=== PATIENT | female | born 1965 | race American Indian/Alaskan Native ===

== ENCOUNTER 2017-06-06 08:56 | Emergency (ER) | payer MEDICAID ==
[2017-06-06 09:00] VITALS: BP 148/81; TEMP 97; O2SAT 100
[2017-06-06 09:01] VITALS: BMI 37.8
--- NOTE | 2017-06-06 10:23 | ED PDOC ---
HPI: General Adult Time Seen by Provider: 06/06/17 09:08 Chief Complaint (Nursing): Flu-like Symptoms Chief Complaint (Provider): Chronic pain and weakness with dizziness History Per: Patient History/Exam Limitations: no limitations Onset/Duration Of Symptoms: Days (chronic, worsening last night) Additional Complaint(s): Dasha Castrejon is a 51 year old female with a past surgical history of a hysterectomy completed 1 year ago, cholecystectomy, and past medical history of hypertension and a past family history of stomach problems presenting to the ED for an evaluation of chronic generalized weakness and pain worsening last night. The patient reports pain to her bilateral lower extremities, bilateral upper extremities, right shoulder, and bilateral ankles associated with dizziness, sweats, and nausea, and epigastric pain. The patient states she also has had chronic hematuria. She has experienced these symptoms upon completing her hysterectomy. She also reports being seen at [facility] for the same symptoms and was prescribed Meclizine. The patient reports drinking cranberry juice and taking Tylenol last night at 3 AM without relief and immediately vomited upon taking the medication. She denies fever. PMD: TBD Past Medical History Reviewed: Historical Data, Nursing Documentation, Vital Signs Vital Signs: Last Vital Signs Temp 97 F L 06/06/17 08:59 Pulse 69 06/06/17 10:32 Resp BP 148/81 06/06/17 08:59 Pulse Ox 100 06/06/17 10:32 - Medical History PMH: Anemia, Gall Bladder Disease (Hx Gallstones), HTN Denies: Anxiety, Depression, HIV, Chronic Kidney Disease - Surgical History Surgical History: Cholecystectomy (1990) - Family History Family History: States: Unknown Family Hx - Social History Current smoker - smoking cessation education provided: No Ex-Smoker (has not smoked in the last 12 months): No Alcohol: None Drugs: Denies - Home Medications Home Medications: Ambulatory Orders Medication Instructions Recorded Ferrous Sulfate 325 mg PO DAILY 07/27/14 Ascorbic Acid 500 mg PO DAILY #30 tab 07/28/14 Bisacodyl [Ducolax] 5 mg PO DAILY #30 ect 07/28/14 Citalopram [celeXA] 10 mg PO DAILY #0 tab 07/28/14 Magnesium Citrate [Magnesia 1.75 gm PO ONCE #1 bot 03/06/15 Citrate] Ondansetron [Zofran] 4 mg PO Q8H PRN #30 tab 03/06/15 Polyethylene Glycol 3350 [Miralax] 17 gm PO DAILY PRN #1 bottle 03/06/15 Meclizine [Meclizine*] 25 mg PO Q6 #30 tab 06/06/17 Naproxen 500 mg PO BID #20 tab 06/06/17 - Allergies Allergies/Adverse Reactions: Allergies Allergy/AdvReac Type Severity Reaction Status Date / Time codeine Allergy RASH Verified 06/06/17 09:10 Penicillins Allergy RASH Verified 06/06/17 09:10 Sulfa (Sulfonamide Allergy ANAPHYLAXIS Verified 06/06/17 09:10 Antibiotics) Review of Systems ROS Statement: Except As Marked, All Systems Reviewed And Found Negative Constitutional: Positive for: Sweats, Weakness (generalized weakness and pain felt to bilateral lower extremities, upper extremities, right shoulder and bilateral ankles). Negative for: Fever Gastrointestinal: Positive for: Nausea, Vomiting, Abdominal Pain (epigastric pain) Genitourinary Female: Positive for: Hematuria (chronic) Neurological: Positive for: Dizziness Physical Exam - Reviewed Nursing Documentation Reviewed: Yes Vital Signs Reviewed: Yes - Physical Exam Appears: Positive for: Non-toxic, No Acute Distress Head Exam: Positive for: ATRAUMATIC, NORMOCEPHALIC Skin: Positive for: Normal Color, Warm, Dry Eye Exam: Positive for: Normal appearance, EOMI, PERRL ENT: Positive for: Normal ENT Inspection Neck: Positive for: Normal, Painless ROM, Supple Cardiovascular/Chest: Positive for: Regular Rate, Rhythm. Negative for: Edema, Murmur Respiratory: Positive for: Normal Breath Sounds. Negative for: Respiratory Distress Gastrointestinal/Abdominal: Positive for: Soft, Tenderness (mild epigastric tenderness) Back: Positive for: Normal Inspection Extremity: Positive for: Normal ROM Neurologic/Psych: Positive for: Alert, Oriented (x3). Negative for: Motor/ Sensory Deficits - Laboratory Results Result Diagrams: 06/06/17 10:24 06/06/17 10:24 - ECG ECG: Positive for: Interpreted By Me, Viewed By Me ECG Rhythm: Positive for: Normal QRS, Sinus Rhythm (normal). Negative for: ST/ T Changes Rate: 69 O2 Sat by Pulse Oximetry: 100 (RA) Pulse Ox Interpretation: Normal Medical Decision Making Medical Decision Making: Time: :08 Impression: Body Aches, Dizziness, Epigastric pain Differential includes but is not limited to Vertigo as per 2nd episode of dizziness experienced and Arthritis or Fibromyalgia as per chronic recurring body aches with other conditions considered. Plan: * ED EKG * BMP * CBC (with differential) * Troponin I * Antivert 25 mg PO * Toradol 30 mg IM * Reevaluation Scribe Attestation: Documented by Soledad Jay, acting as a scribe for Kobi Rajput MD. Provider Scribe Attestation: All medical record entries made by the Scribe were at my direction and personally dictated by me. I have reviewed the chart and agree that the record accurately reflects my personal performance of the history, physical exam, medical decision making, and the department course for this patient. I have also personally directed, reviewed, and agree with the discharge instructions and disposition. Disposition - Clinical Impression Clinical Impression: Arthralgia, Dizziness - Patient ED Disposition Is Patient to be Admitted: No Doctor Will See Patient In The: Office Counseled Patient/Family Regarding: Studies Performed, Diagnosis, Need For Followup - Disposition Referrals: [facility] [Outside] Disposition: Routine/Home Disposition Time: 12:11 Condition: GOOD Additional Instructions: Follow up with your PCP in 2 -3 days. Prescriptions: Meclizine [Meclizine*] 25 mg PO Q6 #30 tab Naproxen 500 mg PO BID #20 tab Instructions: Vertigo (ED), Arthralgia (ED)
[2017-06-06 10:31] VITALS: PULSE 69
[2017-06-06 10:34] LABS: BASO % 0.4 % (0.0-2.0); EOS # 0.1 K/uL (0.0-0.7); HEMATOCRIT 40.1 % (34.0-47.0); LYMPH # 2.2 K/uL (1.0-4.3); LYMPH % 32.6 % (20.0-40.0); MEAN CELL VOLUME 87.6 fl (81.0-99.0); MEAN CORPUSCULAR HEMOGLOBIN 28.4 pg (27.0-31.0); MEAN CORPUSCULAR HGB CONC 32.4 g/dL (33.0-37.0); MEAN PLATELET VOLUME 7.8 fl (7.2-11.7); MONO # 0.3 K/uL (0.0-0.8); MONO % 5.1 % (0.0-10.0); NEUT # 4.1 K/uL (1.8-7.0); NEUT % 60.9 % (50.0-75.0); RED CELL DISTRIBUTION WIDTH 13.2 % (11.5-14.5); WHITE BLOOD COUNT 6.8 K/uL (4.8-10.8)
[2017-06-06 10:42] LABS: BLOOD UREA NITROGEN 15 mg/dl (7-17); CALCIUM 10.1 mg/dL (8.4-10.2); CARBON DIOXIDE 31 mmol/L (22-30); CHLORIDE 102 mmol/L (98-107); GFR AFRICAN-AMERICAN > 60; GLUCOSE,RANDOM 90 mg/dL (65-105); SODIUM 144 mmol/l (132-148)
--- NOTE | 2017-06-07 09:13 | CARD ---
APPROVED REPORT EKG Measurement Heart [id number] <Conclusion> Normal sinus rhythm Normal ECG
== END 2017-06-06 12:31 | disposition home or self-care (01) ==
LOC: H.ER 08:56
DX: R42 Dizziness and giddiness (principal); M25.569 Pain in unspecified knee; I10 Essential (primary) hypertension; Z87.891 Personal history of nicotine dependence; Z88.0 Allergy status to penicillin; Z90.49 Acquired absence of other specified parts of digestive tract
CPT/HCPCS: 80048; 84484; 85025; 93005; 96372; 99282; J1885

== ENCOUNTER 2017-06-09 12:44 | Emergency (ER) | payer MEDICAID ==
[2017-06-09 12:45] VITALS: BMI 33.7
[2017-06-09 12:52] VITALS: BP 136/91; PULSE 78; RESP 18; TEMP 98; O2SAT 98
[2017-06-09] MEDS ORDERED: Sodium Chloride 0.9% 1,000 ML IV STA (13:57)
[2017-06-09 14:13] LABS: BASO % 0.4 % (0.0-2.0); EOS # 0.1 K/uL (0.0-0.7); EOS % 1.2 % (0.0-4.0); HEMATOCRIT 40.2 % (34.0-47.0); LYMPH # 1.5 K/uL (1.0-4.3); LYMPH % 19.5 % (20.0-40.0); MEAN CELL VOLUME 87.1 fl (81.0-99.0); MEAN CORPUSCULAR HEMOGLOBIN 28.6 pg (27.0-31.0); MEAN CORPUSCULAR HGB CONC 32.8 g/dL (33.0-37.0); MEAN PLATELET VOLUME 7.5 fl (7.2-11.7); MONO # 0.3 K/uL (0.0-0.8); MONO % 3.8 % (0.0-10.0); NEUT # 5.9 K/uL (1.8-7.0); NEUT % 75.1 % (50.0-75.0); NRBC % 0.1 % (0.0-0.0); RED CELL DISTRIBUTION WIDTH 13.1 % (11.5-14.5); WHITE BLOOD COUNT 7.9 K/uL (4.8-10.8)
--- NOTE | 2017-06-09 14:18 | ED PDOC ---
HPI: General Adult Time Seen by Provider: 06/09/17 13:05 Chief Complaint (Nursing): Dizziness/Lightheaded History Per: Patient Additional Complaint(s): Pt. states for the past month she's had dizziness described as feeling imbalanced. States she initially developed symptoms over the summer after she had vomiting and diarrhea. She was seen in [facility] ED and given meclizine which initially did provide some relief. States symptoms returned 1 month ago and are now associated with atraumatic non-radiating upper and lower back pain. Also reports that she was seen in ED last week for same complaint and was prescribed Travel Sickness which has not provided any relief. Reports now dizziness is associated with nausea and non-bloody vomiting. Denies head injury, abdominal pain, chest pain, SOB, fever, incontinence, hematuria, dysuria. Past Medical History Reviewed: Historical Data, Nursing Documentation, Vital Signs Vital Signs: Last Vital Signs Temp 98 F 06/09/17 12:50 Pulse 78 06/09/17 12:50 Resp 18 06/09/17 12:50 BP 136/91 H 06/09/17 12:50 Pulse Ox 98 06/09/17 16:28 - Medical History PMH: Gastritis, HTN Denies: Chronic Kidney Disease - Surgical History Surgical History: Cholecystectomy - Family History Family History: States: Unknown Family Hx - Immunization History Hx Tetanus Toxoid Vaccination: Yes Hx Influenza Vaccination: Yes Hx Pneumococcal Vaccination: Yes - Home Medications Home Medications: Ambulatory Orders Medication Instructions Recorded Diltiazem HCl [Diltiazem 24Hr ER] 300 mg PO DAILY 04/30/16 Ciprofloxacin [Cipro] 500 mg PO BID 12/20/16 Ferrous Sulfate 325 mg PO BID 12/20/16 Ondansetron [Zofran Odt] 4 mg PO Q6 PRN 12/20/16 Meclizine [Meclizine*] 25 mg PO Q6 #30 tab 12/21/16 Ondansetron ODT [Zofran ODT] 1 odt PO BID PRN #6 odt 12/21/16 LORazepam [Ativan] 1 mg PO BID PRN #10 tab 06/09/17 Ondansetron ODT [Zofran ODT] 4 mg PO TID #30 odt 06/09/17 - Allergies Allergies/Adverse Reactions: Allergies Allergy/AdvReac Type Severity Reaction Status Date / Time codeine Allergy ITCHING Verified 06/09/17 12:50 Penicillins Allergy ITCHING Verified 06/09/17 12:50 Sulfa (Sulfonamide Allergy ITCHING Verified 06/09/17 12:50 Antibiotics) Review of Systems ROS Statement: Except As Marked, All Systems Reviewed And Found Negative Musculoskeletal: Positive for: Back Pain Neurological: Positive for: Dizziness Physical Exam - Reviewed Nursing Documentation Reviewed: Yes Vital Signs Reviewed: Yes - Physical Exam Appears: Positive for: Well, Non-toxic, No Acute Distress Head Exam: Positive for: ATRAUMATIC, NORMAL INSPECTION, NORMOCEPHALIC Skin: Positive for: Normal Color, Warm. Negative for: Rash Eye Exam: Positive for: Normal appearance, EOMI, PERRL, Nystagmus (horizontal nystagmus) ENT: Positive for: Normal ENT Inspection Neck: Positive for: Normal, Painless ROM Cardiovascular/Chest: Positive for: Regular Rate, Rhythm Respiratory: Positive for: CNT, Normal Breath Sounds Gastrointestinal/Abdominal: Positive for: Normal Exam, Bowel Sounds, Soft. Negative for: Tenderness Back: Positive for: Normal Inspection. Negative for: L CVA Tenderness, R CVA Tenderness, Vertebral Tenderness Extremity: Positive for: Normal ROM Neurologic/Psych: Positive for: Alert, Oriented - Laboratory Results Result Diagrams: 06/09/17 14:09 06/09/17 14:09 - ECG O2 Sat by Pulse Oximetry: 98 - Progress ED Course And Treament: Labs ordered. CT head w/o contrast ordered. Antivert 1mg PO, reglan 10mg IVPB, IV NS bolus x [address] results d/w pt. and instructed to f/u with neuro for further evaluation. Disposition - Clinical Impression Clinical Impression: Vertigo, Back pain - Patient ED Disposition Is Patient to be Admitted: No - Disposition Referrals: Mark Greco MD [Staff Provider] - Leo Delaney MD [Medical Doctor] - Disposition: Routine/Home Disposition Time: 16:25 Condition: STABLE Prescriptions: LORazepam [Ativan] 1 mg PO BID PRN #10 tab PRN Reason: Dizziness Ondansetron ODT [Zofran ODT] 4 mg PO TID #30 odt Instructions: Vertigo (ED), Back Pain (ED) Forms: [employer] (Greenlandic), [facility] ED School/Work Excuse
[2017-06-09 14:23] LABS: ALB/GLOB RATIO 1.1 (1.0-2.1); ALKALINE PHOSPHATASE 108 U/L (38-126); ALT/SGPT 35 U/L (9-52); AST/SGOT 20 U/L (14-36); BILIRUBIN,TOTAL 0.4 mg/dl (0.2-1.3); BLOOD UREA NITROGEN 13 mg/dl (7-17); CALCIUM 9.7 mg/dL (8.4-10.2); CARBON DIOXIDE 27 mmol/L (22-30); CHLORIDE 105 mmol/L (98-107); GFR AFRICAN-AMERICAN > 60; GLUCOSE,RANDOM 122 mg/dL (65-105); POTASSIUM 4.2 MMOL/L (3.6-5.0); SODIUM 141 mmol/l (132-148)
--- NOTE | 2017-06-09 15:05 | RAD ---
PROCEDURE: Radiographs of the Lumbar Spine. HISTORY: pain COMPARISON: No prior. FINDINGS: BONES: Normal alignment. No listhesis. No fracture. DISC SPACES: Multilevel spondylosis appreciated throughout the lumbar spine which history of L5-S1. Mild disc height loss seen at L4-5. OTHER FINDINGS: Bilateral double-J ureteral stent deployment and surgical clips are identified also in the left upper quadrant IMPRESSION: Multilevel degenerative disease. No definite fracture or spondylolisthesis.
--- NOTE | 2017-06-09 15:06 | CT ---
PROCEDURE: CT HEAD WITHOUT CONTRAST. HISTORY: dizziness COMPARISON: None available. TECHNIQUE: Axial computed tomography images were obtained through the head/brain without intravenous contrast. Radiation dose: Total exam DLP = 785.46 mGy-cm. This CT exam was performed using one or more of the following dose reduction techniques: Automated exposure control, adjustment of the mA and/or kV according to patient size, and/or use of iterative reconstruction technique. FINDINGS: HEMORRHAGE: No acute parenchymal, subarachnoid or extra-axial hemorrhage. BRAIN: No mass effect or edema. No atrophy or chronic microvascular ischemic changes. VENTRICLES: No obstructive hydrocephalus. CALVARIUM: Unremarkable. Discrete elliptical shaped lucency within the inner table of the left posterior parietal calvarium could represent a venous Neely. Followup interval recommended to assess stability. PARANASAL SINUSES: Unremarkable as visualized. No significant inflammatory changes. MASTOID AIR CELLS: Unremarkable as visualized. No inflammatory changes. OTHER FINDINGS: None. IMPRESSION: No acute intracranial hemorrhage. Small elliptical shaped lucency within inner table of the the left posterior parietal calvarium could represent venous Neely. Follow-up CT scan at interval could be performed to assess stability.
--- NOTE | 2017-06-09 15:14 | RAD ---
HISTORY: Pain. COMPARISON: No prior. FINDINGS: BONES: No acute compression fractures no retropulsed fragments. Vertebral bodies exhibit relatively normal stature. 2 bodies facets normally aligned DISC SPACES: Mild multilevel degenerative spondylosis mild within mild endplate eburnation and small marginal anterolateral osteophyte formation. . SOFT TISSUES: Normal. OTHER FINDINGS: None. IMPRESSION: No acute fractures. Mild multilevel degenerative spondylosis.
--- NOTE | 2017-06-09 17:50 | CARD ---
APPROVED REPORT EKG Measurement Heart [id number] <Conclusion> Normal sinus rhythm Cannot rule out Anterior infarct, age undetermined Abnormal ECG
== END 2017-06-09 17:19 | disposition home or self-care (01) ==
LOC: H.ER 12:44 → MERGE 12:44 → H.ER 17:19
DX: R42 Dizziness and giddiness (principal); I10 Essential (primary) hypertension; M54.9 Dorsalgia, unspecified; M51.36 Other intervertebral disc degeneration, lumbar region; Z88.0 Allergy status to penicillin
CPT/HCPCS: 70450; 72070; 72100; 80053; 82948; 85025; 93005; 96361; 96374; 99285; J2405; J7040

== ENCOUNTER 2017-10-29 20:19 | Emergency (ER) | payer MEDICAID, OTHER ==
[2017-10-29 20:19] VITALS: BMI 37.8
[2017-10-29 20:30] VITALS: TEMP 98
--- NOTE | 2017-10-29 20:51 | ED PDOC ---
HPI: Abdomen Time Seen by Provider: 10/29/17 20:31 Chief Complaint (Nursing): GI Problem History Per: Patient History/Exam Limitations: no limitations Onset/Duration Of Symptoms: Hrs Outside of [place] travel?: No Current Symptoms Are (Timing): Still Present Location Of Pain/Discomfort: Diffuse Quality Of Discomfort: Cramping Associated Symptoms: Nausea, Vomiting, Constipation. denies: Fever, Chills, Diarrhea Additional Complaint(s): Hx of HTN, s/p cholecystectomy and , presenting with abdominal pain, nausea and vomiting, states she was eating a TV dinner and immediately upon completion, patient felt the urge to defecate but wasn't able to and had diffuse abdominal pain with one episode of non-bloody, non-bilious vomiting. States she has not had a proper bowel movement in 2 - 3 days, but it is normal for her to have constipation on occasion. Denies fevers, chills. Past Medical History Reviewed: Historical Data, Nursing Documentation, Vital Signs Vital Signs: Last Vital Signs Temp 98.0 F 10/29/17 20:28 Pulse 82 10/29/17 20:28 Resp 16 10/29/17 20:28 BP 128/58 L 10/29/17 20:28 Pulse Ox 97 10/30/17 03:34 - Medical History PMH: Anemia, Gastritis, Gall Bladder Disease, HTN Denies: Anxiety, Depression, HIV, Chronic Kidney Disease - Surgical History Surgical History: Cholecystectomy (1990) - Family History Family History: States: Unknown Family Hx - Immunization History Hx Tetanus Toxoid Vaccination: Yes Hx Influenza Vaccination: Yes Hx Pneumococcal Vaccination: Yes - Home Medications Home Medications: Ambulatory Orders Medication Instructions Recorded Ferrous Sulfate 325 mg PO DAILY 07/27/14 Ascorbic Acid 500 mg PO DAILY #30 tab 07/28/14 Bisacodyl [Ducolax] 5 mg PO DAILY #30 ect 07/28/14 Citalopram [celeXA] 10 mg PO DAILY #0 tab 07/28/14 Magnesium Citrate [Magnesia 1.75 gm PO ONCE #1 bot 03/06/15 Citrate] Ondansetron [Zofran] 4 mg PO Q8H PRN #30 tab 03/06/15 Polyethylene Glycol 3350 [Miralax] 17 gm PO DAILY PRN #1 bottle 03/06/15 Diltiazem HCl [Diltiazem 24Hr ER] 300 mg PO DAILY 04/30/16 Ciprofloxacin [Cipro] 500 mg PO BID 12/20/16 Ferrous Sulfate 325 mg PO BID 12/20/16 Ondansetron [Zofran Odt] 4 mg PO Q6 PRN 12/20/16 Meclizine [Meclizine*] 25 mg PO Q6 #30 tab 12/21/16 Ondansetron ODT [Zofran ODT] 1 odt PO BID PRN #6 odt 12/21/16 Meclizine [Meclizine*] 25 mg PO Q6 #30 tab 06/06/17 Naproxen 500 mg PO BID #20 tab 06/06/17 LORazepam [Ativan] 1 mg PO BID PRN #10 tab 06/09/17 Ondansetron ODT [Zofran ODT] 4 mg PO TID #30 odt 06/09/17 Magnesium Citrate 100 mg PO DAILY PRN #10 tablet 10/30/17 Nitrofurantoin Macrocrystals 100 mg PO BID 10 Days cap 10/30/17 [Macrobid] - Allergies Allergies/Adverse Reactions: Allergies Allergy/AdvReac Type Severity Reaction Status Date / Time codeine Allergy RASH Verified 10/29/17 20:28 Penicillins Allergy RASH Verified 10/29/17 20:28 Sulfa (Sulfonamide Allergy ANAPHYLAXIS Verified 10/29/17 20:28 Antibiotics) Review of Systems ROS Statement: Except As Marked, All Systems Reviewed And Found Negative Gastrointestinal: Positive for: Nausea, Vomiting, Abdominal Pain. Negative for : Constipation Physical Exam - Reviewed Nursing Documentation Reviewed: Yes Vital Signs Reviewed: Yes - Physical Exam Appears: Positive for: Well, Non-toxic, No Acute Distress Head Exam: Positive for: ATRAUMATIC, NORMAL INSPECTION, NORMOCEPHALIC Skin: Positive for: Normal Color, Warm, DRY Eye Exam: Positive for: EOMI, Normal appearance, PERRL ENT: Positive for: Normal ENT Inspection Neck: Positive for: Normal, Painless ROM Cardiovascular/Chest: Positive for: Regular Rate, Rhythm Respiratory: Positive for: CNT, Normal Breath Sounds Gastrointestinal/Abdominal: Positive for: Normal Exam, Soft, Tenderness (Diffuse , mild tenderness). Negative for: Organomegaly, Mass, Distended, Guarding, Rebound Back: Positive for: Normal Inspection Extremity: Positive for: Normal ROM Neurologic/Psych: Positive for: Alert, Oriented - Laboratory Results Result Diagrams: 10/29/17 21:26 10/29/17 21:26 - ECG O2 Sat by Pulse Oximetry: 97 Pulse Ox Interpretation: Normal Medical Decision Making Medical Decision MakinPM A/P: Pt. w/ hx of HTN, vertigo, serena and c section presents with nausea, vomiting, abdominal pain, constipation -likely symptoms are related to constipation, less likely SBO -will get obstructive series to eval for air fluid levels -will give lactulose and fleet enema, re-eval after -will check regular labs EXAM: CT Abdomen and Pelvis With Intravenous Contrast EXAM DATE/TIME: 10/29/2017 10:56 PM CLINICAL HISTORY: 52 years old, female; Pain; Abdominal pain; Generalized; Prior surgery; Surgery date: 6+ months; Surgery type: Gall bladder. Hysterectomy; Additional info: Vomiting, constipatoin, mult abd surg, R/O sbo TECHNIQUE: Axial computed tomography images of the abdomen and pelvis with intravenous contrast. All CT scans at this facility use one or more dose reduction techniques, viz.: automated exposure control; ma/kV adjustment per patient size (including targeted exams where dose is matched to indication; i.e. head); or iterative reconstruction technique. Coronal and sagittal reformatted images were created and reviewed. CONTRAST: 95 mL of [id number] administered intravenously. COMPARISON: Prior CT abdomen and pelvis of 2015-03-05 22:18 FINDINGS: LUNG BASES: No significant abnormality seen. ABDOMEN: LIVER: No acute abnormality of the liver identified. GALLBLADDER AND BILE DUCTS: Cholecystectomy clips. Mild biliary ductal dilatation, most likely related to the post cholecystectomy state. No radiopaque common bile duct stones are visualized. Recommend correlation with LFTs as clinically indicated. PANCREAS: No CT evidence of acute pancreatitis. SPLEEN: No acute abnormality of the spleen identified. ADRENALS: No acute abnormality of the adrenal glands identified. 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 Bilateral ureteral stents in place. The proximal tip of the left ureteral stent is located in the lower pole collecting system of the left kidney. The proximal tip of the right ureteral stent is located in the right renal pelvis. Bilateral hydronephrosis and proximal hydroureter. There is also bilateral urothelial thickening and perinephric/periureteral stranding. No causative obstructing stones are seen. Low density lesion in the left kidney, most likely a cyst. This measures 2.6 cm. STOMACH AND BOWEL: Colonic diverticulosis, with no evidence of acute diverticulitis. Otherwise, no significant abnormality of the bowel is identified. No evidence of bowel obstruction. PELVIS: APPENDIX: Appendix is seen, and is within normal limits in appearance. BLADDER: No acute abnormality of the bladder identified. REPRODUCTIVE: Evidence of prior partial hysterectomy. No evidence of large adnexal masses. ABDOMEN and PELVIS: INTRAPERITONEAL SPACE: Multiple surgical clips in the left abdomen. BONES/JOINTS: No acute fractures or other acute bony abnormality noted. SOFT TISSUES: No acute abnormality of the visualized soft tissues is seen. VASCULATURE: No evidence of abdominal aortic aneurysm. No evidence of periaortic hemorrhage. LYMPH NODES: No evidence of diffuse lymphadenopathy. IMPRESSION: - Bilateral hydroureteronephrosis, as well as urothelial thickening and perinephric stranding. No causative obstructing stones are seen. Findings could be secondary to a diffuse urinary tract infection or to recently passed bilateral stones. Bilateral ureteral stents in place. - See above for remaining findings. 330AM Patient feeling better, tolerating PO. Passed BM. Advised patient to followup with urologist who placed stents. Will place on extended course of macrobid. Return precautions discussed. Patient well appearing with stable vitals upon discharge. Disposition - Clinical Impression Clinical Impression: UTI (urinary tract infection), Constipation - Disposition Referrals: [facility] [Outside] Disposition: Routine/Home Disposition Time: 03:30 Condition: IMPROVED Prescriptions: Magnesium Citrate 100 mg PO DAILY PRN #10 tablet PRN Reason: Constipation Nitrofurantoin Macrocrystals [Macrobid] 100 mg PO BID 10 Days cap Instructions: Urinary Tract Infections in Adults, Constipation, Adult (DC) Forms: [employer] (Ugandan)
[2017-10-29 21:24] LABS: SQUAMOUS EPITHIAL 2 /hpf (0-5); URINE BACTERIA RARE (<OCC); URINE BILIRUBIN NEGATIVE (NEGATIVE); URINE BLOOD LARGE (NEGATIVE); URINE CLARITY CLOUDY (Clear); URINE COLOR YELLOW (YELLOW); URINE GLUCOSE (UA) NEG (Normal); URINE LEUKOCYTE ESTERASE TRACE Leu/uL (Negative); URINE PROTEIN >=500 mg/dL (NEGATIVE); URINE UROBILINOGEN 0.2-1.0 mg/dL (0.2-1.0)
[2017-10-29 21:30] LABS: BASO % 0.2 % (0.0-2.0); EOS % 0.4 % (0.0-4.0); HEMOGLOBIN 12.6 g/dL (12.0-16.0); LYMPH # 1.5 K/uL (1.0-4.3); MEAN CELL VOLUME 85.9 fl (81.0-99.0); MEAN CORPUSCULAR HEMOGLOBIN 28.4 pg (27.0-31.0); MEAN CORPUSCULAR HGB CONC 33.1 g/dL (33.0-37.0); MEAN PLATELET VOLUME 7.8 fl (7.2-11.7); MONO # 0.4 K/uL (0.0-0.8); MONO % 4.1 % (0.0-10.0); NEUT # 7.5 K/uL (1.8-7.0); NEUT % 79.3 % (50.0-75.0); RBC 4.43 Mil/uL (3.80-5.20); RED CELL DISTRIBUTION WIDTH 13.2 % (11.5-14.5); WHITE BLOOD COUNT 9.4 K/uL (4.8-10.8)
[2017-10-29 21:42] LABS: ALB/GLOB RATIO 1.2 (1.0-2.1); ALBUMIN 4.3 g/dL (3.5-5.0); ALT/SGPT 54 U/L (9-52); AST/SGOT 29 U/L (14-36); BLOOD UREA NITROGEN 15 mg/dl (7-17); CALCIUM 9.8 mg/dL (8.4-10.2); GFR AFRICAN-AMERICAN > 60; GFR NON-AFRICAN AMERICAN > 60
[2017-10-29] MEDS ORDERED: Iohexol 240 (50 ml) PO ONE (22:56)
[2017-10-30] MEDS ORDERED: Iohexol 300 100 ML IJ ONE (02:09)
[2017-10-30] MEDS ORDERED: Sodium Chloride 0.9% 100 ML ONE (02:10)
--- NOTE | 2017-10-30 03:27 | CT ---
EXAM: CT Abdomen and Pelvis With Intravenous Contrast EXAM DATE/TIME: 10/29/2017 10:56 PM CLINICAL HISTORY: 52 years old, female; Pain; Abdominal pain; Generalized; Prior surgery; Surgery date: 6+ months; Surgery type: Gall bladder. Hysterectomy; Additional info: Vomiting, constipatoin, mult abd surg, R/O sbo TECHNIQUE: Axial computed tomography images of the abdomen and pelvis with intravenous contrast. All CT scans at this facility use one or more dose reduction techniques, viz.: automated exposure control; ma/kV adjustment per patient size (including targeted exams where dose is matched to indication; i.e. head); or iterative reconstruction technique. Coronal and sagittal reformatted images were created and reviewed. CONTRAST: 95 mL of [id number] administered intravenously. COMPARISON: Prior CT abdomen and pelvis of 2015-03-05 22:18 FINDINGS: LUNG BASES: No significant abnormality seen. ABDOMEN: LIVER: No acute abnormality of the liver identified. GALLBLADDER AND BILE DUCTS: Cholecystectomy clips. Mild biliary ductal dilatation, most likely related to the post cholecystectomy state. No radiopaque common bile duct stones are visualized. Recommend correlation with LFTs as clinically indicated. PANCREAS: No CT evidence of acute pancreatitis. SPLEEN: No acute abnormality of the spleen identified. ADRENALS: No acute abnormality of the adrenal glands identified. 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 Bilateral ureteral stents in place. The proximal tip of the left ureteral stent is located in the lower pole collecting system of the left kidney. The proximal tip of the right ureteral stent is located in the right renal pelvis. Bilateral hydronephrosis and proximal hydroureter. There is also bilateral urothelial thickening and perinephric/periureteral stranding. No causative obstructing stones are seen. Low density lesion in the left kidney, most likely a cyst. This measures 2.6 cm. STOMACH AND BOWEL: Colonic diverticulosis, with no evidence of acute diverticulitis. Otherwise, no significant abnormality of the bowel is identified. No evidence of bowel obstruction. PELVIS: APPENDIX: Appendix is seen, and is within normal limits in appearance. BLADDER: No acute abnormality of the bladder identified. REPRODUCTIVE: Evidence of prior partial hysterectomy. No evidence of large adnexal masses. ABDOMEN and PELVIS: INTRAPERITONEAL SPACE: Multiple surgical clips in the left abdomen. BONES/JOINTS: No acute fractures or other acute bony abnormality noted. SOFT TISSUES: No acute abnormality of the visualized soft tissues is seen. VASCULATURE: No evidence of abdominal aortic aneurysm. No evidence of periaortic hemorrhage. LYMPH NODES: No evidence of diffuse lymphadenopathy. IMPRESSION: - Bilateral hydroureteronephrosis, as well as urothelial thickening and perinephric stranding. No causative obstructing stones are seen. Findings could be secondary to a diffuse urinary tract infection or to recently passed bilateral stones. Bilateral ureteral stents in place. - See above for remaining findings.
[2017-10-30 04:25] VITALS: BP 129/64; PULSE 80; RESP 20; O2SAT 100
--- NOTE | 2017-10-30 10:25 | RAD ---
PROCEDURE: Radiographs of the chest and abdomen (obstructive series). HISTORY: Abdominal pain, vomiting, constipation COMPARISON: No prior. TECHNIQUE: AP radiograph of the chest, with upright and supine radiographs of the abdomen. FINDINGS: CHEST: Lung sims are clear. No infiltrate effusion or obvious pneumothorax. ABDOMEN AND PELVIS: No gross free intraperitoneal air seen under the diaphragmatic surfaces. There are in situ bilateral ureteral stents. Multiple metallic surgical clips seen overlying the left abdomen with chain sutures on in the left parasagittal upper/ mid abdomen trauma. No evidence of acute mechanical bowel obstruction however there are several on nondistended air-filled loops of small bowel in the left mid abdomen suggesting mild ileus. Stool is seen throughout the ascending colon. IMPRESSION: No acute cardiopulmonary disease. . No evidence of acute mechanical bowel obstruction however findings suggest mild ileus. No evidence of free intraperitoneal air. In situ bilateral ureteral stents. See above discussion for additional details
== END 2017-10-30 04:33 | disposition home or self-care (01) ==
LOC: H.ER 20:19
DX: N39.0 Urinary tract infection, site not specified (principal); K59.00 Constipation, unspecified; D25.9 Leiomyoma of uterus, unspecified; I10 Essential (primary) hypertension; Z88.0 Allergy status to penicillin; Z90.710 Acquired absence of both cervix and uterus
CPT/HCPCS: 74022; 74177; 80053; 81003; 81025; 85025; 87086; 96374; 99284; J1885; J2765; Q9966; Q9967

== ENCOUNTER 2018-08-03 08:14 | Emergency (ER) | payer MEDICAID, OTHER ==
[2018-08-03 08:33] VITALS: BMI 33.3
--- NOTE | 2018-08-03 09:11 | ED PDOC ---
HPI: General Adult Time Seen by Provider: 08/03/18 08:41 Chief Complaint (Nursing): Flu-like Symptoms Chief Complaint (Provider): body aches Additional Complaint(s): 53 yo f with history of diverticulitis, htn, arthritis here with complained of whole body pain since yesterday. subjective fever,dry cough, entire body hurting. no vomiting or dysuria. Past Medical History Vital Signs: Last Vital Signs Temp 102 F H 08/03/18 08:34 Pulse 114 H 08/03/18 08:34 Resp 18 08/03/18 08:34 BP 146/93 H 08/03/18 08:34 Pulse Ox 97 08/03/18 08:34 - Medical History PMH: Anemia, Gastritis, Gall Bladder Disease, HTN - Surgical History Surgical History: Cholecystectomy (1990) Other surgeries: hysterectomy - Family History Family History: States: Unknown Family Hx - Social History Current smoker - smoking cessation education provided: No Alcohol: None Drugs: Denies - Immunization History Hx Tetanus Toxoid Vaccination: Yes Hx Influenza Vaccination: Yes Hx Pneumococcal Vaccination: Yes - Home Medications Home Medications: Ambulatory Orders Medication Instructions Recorded Polyethylene Glycol 3350 [Miralax] 17 gm PO DAILY PRN #1 bottle 03/06/15 Diltiazem HCl [Diltiazem 24Hr ER] 300 mg PO DAILY 04/30/16 Nitrofurantoin Macrocrystals 100 mg PO BID 10 Days cap 10/30/17 [Macrobid] Lisinopril [Zestril] 10 mg PO DAILY 11/05/17 Oseltamivir Cap [Tamiflu] 75 mg PO BID #10 cap 08/03/18 - Allergies Allergies/Adverse Reactions: Allergies Allergy/AdvReac Type Severity Reaction Status Date / Time codeine Allergy RASH Verified 08/03/18 08:36 Penicillins Allergy RASH Verified 08/03/18 08:36 Sulfa (Sulfonamide Allergy ANAPHYLAXIS Verified 08/03/18 08:36 Antibiotics) Review of Systems ROS Statement: Except As Marked, All Systems Reviewed And Found Negative Constitutional: Positive for: Fever, Chills, Weakness, Malaise Physical Exam - Reviewed Nursing Documentation Reviewed: Yes Vital Signs Reviewed: Yes - Physical Exam Appears: Positive for: Well, Non-toxic, No Acute Distress Head Exam: Positive for: ATRAUMATIC, NORMAL INSPECTION, NORMOCEPHALIC Skin: Positive for: Normal Color, Warm, DRY Eye Exam: Positive for: EOMI, Normal appearance, PERRL ENT: Positive for: Normal ENT Inspection Neck: Positive for: Normal, Painless ROM Cardiovascular/Chest: Positive for: Regular Rate, Rhythm Respiratory: Positive for: CNT, Normal Breath Sounds Gastrointestinal/Abdominal: Positive for: Normal Exam, Soft Back: Positive for: Normal Inspection Extremity: Positive for: Normal ROM Neurologic/Psych: Positive for: Alert, Oriented - Laboratory Results Result Diagrams: 08/03/18 09:30 08/03/18 09:30 - ECG ECG: Positive for: Interpreted By Me, Viewed By Me ECG Rhythm: Positive for: Normal QRS, Normal ST Segment, Sinus Rhythm Rate: 102 O2 Sat by Pulse Oximetry: 97 (RA) Pulse Ox Interpretation: Normal Medical Decision Making Medical Decision Making: fever, body aches rule out flu, pneumonia labs fluids, tylenol 1214 Labs and urine results reviewed with no clinically significant findings. Rapid flu negative. Currently pending CXR read 1323 CXR reviewed by me and shows no acute disease. Vitals reviewed and patient noted to have improved. Patient is stable for discharge home. Disposition - Clinical Impression Clinical Impression: Influenza-like symptoms, Fever - Disposition Disposition: Routine/Home Disposition Time: 13:23 Condition: IMPROVED Additional Instructions: follow up with your primary doctor in 1-2 days take motrin for pain or fever plenty of hydration return to the ED with any worsening or concerning symptoms Prescriptions: Oseltamivir Cap [Tamiflu] 75 mg PO BID #10 cap Instructions: Flu, Adult (DC) Forms: [employer] ([place])
[2018-08-03] MEDS ORDERED: Sodium Chloride 0.9% 1,000 ML IV STA (09:14)
[2018-08-03 09:56] LABS: SQUAMOUS EPITHIAL 2 /hpf (0-5); URINE BILIRUBIN NEGATIVE (NEGATIVE); URINE BLOOD NEGATIVE (NEGATIVE); URINE CLARITY SLIGHTY-CLOUDY (Clear); URINE COLOR YELLOW (YELLOW); URINE GLUCOSE (UA) NEG (NEGATIVE); URINE LEUKOCYTE ESTERASE NEG Leu/uL (Negative); URINE PROTEIN NEGATIVE (NEGATIVE); URINE UROBILINOGEN 0.2-1.0 mg/dL (0.2-1.0)
[2018-08-03 09:59] LABS: BASO % 0.4 % (0.0-2.0); EOS # 0.1 K/uL (0.0-0.7); EOS % 1.2 % (0.0-4.0); HEMOGLOBIN 12.5 g/dL (12.0-16.0); LYMPH # 0.7 K/uL (1.0-4.3); LYMPH % 13.6 % (20.0-40.0); MEAN CELL VOLUME 85.7 fl (81.0-99.0); MEAN CORPUSCULAR HEMOGLOBIN 28.5 pg (27.0-31.0); MEAN CORPUSCULAR HGB CONC 33.3 g/dL (33.0-37.0); MEAN PLATELET VOLUME 7.8 fl (7.2-11.7); MONO # 0.6 K/uL (0.0-0.8); MONO % 10.5 % (0.0-10.0); NEUT # 4.1 K/uL (1.8-7.0); NEUT % 74.3 % (50.0-75.0); NRBC % 0.1 % (0.0-0.0); RBC 4.38 Mil/uL (3.80-5.20); RED CELL DISTRIBUTION WIDTH 13.6 % (11.5-14.5); WHITE BLOOD COUNT 5.4 K/uL (4.8-10.8)
[2018-08-03 10:09] LABS: ALB/GLOB RATIO 1.2 (1.0-2.1); ALBUMIN 4.4 g/dL (3.5-5.0); ALT/SGPT 24 U/L (9-52); AST/SGOT 30 U/L (14-36); BLOOD UREA NITROGEN 12 mg/dl (7-17); CALCIUM 10.3 mg/dL (8.4-10.2); GFR NON-AFRICAN AMERICAN 58
[2018-08-03 13:33] VITALS: BP 132/74; PULSE 89; RESP 17; TEMP 98.7; O2SAT 98
--- NOTE | 2018-08-03 16:50 | RAD ---
HISTORY: fever cough COMPARISON: Chest x-ray portion of obstructive series performed 10/29/17 TECHNIQUE: Chest PA and lateral FINDINGS: LUNGS: No focal consolidation. Please note that chest x-ray has limited sensitivity for the detection of pulmonary masses. PLEURA: No significant pleural effusion identified. No definite pneumothorax . CARDIOVASCULAR: Heart size appears top normal. No atherosclerotic calcification present. OSSEOUS STRUCTURES: Degenerative changes. VISUALIZED UPPER ABDOMEN: Upper abdominal surgical clips. OTHER FINDINGS: None. IMPRESSION: No focal consolidation.
== END 2018-08-03 13:37 | disposition home or self-care (01) ==
LOC: H.ER 08:14
DX: J11.1 Influenza due to unidentified influenza virus with other respiratory manifestations (principal); R50.9 Fever, unspecified; I10 Essential (primary) hypertension; Z88.0 Allergy status to penicillin; Z88.2 Allergy status to sulfonamides
CPT/HCPCS: 71046; 80053; 81003; 85025; 87086; 87804; 96360; 99284; J7030

== ENCOUNTER 2018-09-19 09:25 | Emergency (ER) | payer OTHER ==
[2018-09-19 09:36] VITALS: BMI 34.2
--- NOTE | 2018-09-19 11:13 | ED PDOC ---
HPI: General Adult Time Seen by Provider: 09/19/18 10:36 Chief Complaint (Nursing): Flu-like Symptoms Chief Complaint (Provider): Hip Pain History Per: Patient History/Exam Limitations: no limitations Onset/Duration Of Symptoms: Days Current Symptoms Are (Timing): Still Present Additional Complaint(s): 53 year old female with a past medical history of hypertension, anemia, and gastritis who is presenting to the ED for evaluation of right lower back/hip pain ongoing for 2 days. Patient states that pain is worsened when she coughs and reports neck pain that has been going on for a long time. She states that she had been using Motrin for pain control with her last dose last night. She denies any fevers, shortness of breath, heavy lifting or similar episode in the past. Patient offers no other medical complaints at this time. PMD: non-[facility] Provider Past Medical History Reviewed: Historical Data, Nursing Documentation, Vital Signs Vital Signs: Last Vital Signs Temp 97.1 F L 09/19/18 09:34 Pulse 81 09/19/18 09:34 Resp 20 09/19/18 09:34 BP 141/83 09/19/18 09:34 Pulse Ox 97 09/19/18 09:34 - Medical History PMH: Anemia, Gastritis, Gall Bladder Disease, HTN - Surgical History Surgical History: Cholecystectomy (1990) - Family History Family History: States: Unknown Family Hx - Social History Current smoker - smoking cessation education provided: No Alcohol: None Drugs: Denies - Immunization History Hx Tetanus Toxoid Vaccination: Yes Hx Influenza Vaccination: Yes Hx Pneumococcal Vaccination: Yes - Home Medications Home Medications: Ambulatory Orders Medication Instructions Recorded Polyethylene Glycol 3350 [Miralax] 17 gm PO DAILY PRN #1 bottle 03/06/15 Diltiazem HCl [Diltiazem 24Hr ER] 300 mg PO DAILY 04/30/16 Nitrofurantoin Macrocrystals 100 mg PO BID 10 Days cap 10/30/17 [Macrobid] Lisinopril [Zestril] 10 mg PO DAILY 11/05/17 Oseltamivir Cap [Tamiflu] 75 mg PO BID #10 cap 08/03/18 Lidocaine 5% [Lidoderm] 1 ea TD DAILY PRN #7 patch 09/19/18 - Allergies Allergies/Adverse Reactions: Allergies Allergy/AdvReac Type Severity Reaction Status Date / Time codeine Allergy RASH Verified 08/03/18 08:36 Penicillins Allergy RASH Verified 08/03/18 08:36 Sulfa (Sulfonamide Allergy ANAPHYLAXIS Verified 08/03/18 08:36 Antibiotics) Review of Systems ROS Statement: Except As Marked, All Systems Reviewed And Found Negative Constitutional: Negative for: Fever Cardiovascular: Negative for: Chest Pain Respiratory: Negative for: Shortness of Breath Musculoskeletal: Positive for: Neck Pain, Back Pain, Other (Hip Pain ) Physical Exam - Reviewed Nursing Documentation Reviewed: Yes Vital Signs Reviewed: Yes - Physical Exam Appears: Positive for: Non-toxic, No Acute Distress (morbidly obese ) Head Exam: Positive for: ATRAUMATIC Skin: Positive for: Normal Color, Warm, DRY Eye Exam: Positive for: EOMI, Normal appearance, PERRL Neck: Positive for: Normal, Painless ROM, Supple Cardiovascular/Chest: Positive for: Regular Rate, Rhythm. Negative for: Murmur Respiratory: Positive for: Normal Breath Sounds. Negative for: Respiratory Distress Gastrointestinal/Abdominal: Positive for: Normal Exam, Soft. Negative for: Tenderness Back: Positive for: Other (right hip tenderness, bilateral upper shoulder tenderness to palpation). Negative for: L CVA Tenderness, R CVA Tenderness, Vertebral Tenderness Extremity: Positive for: Normal ROM. Negative for: Deformity, Swelling Neurological/Psych: Positive for: Awake, Alert, Normal Tone, Oriented. Negative for: Motor/Sensory Deficits - ECG O2 Sat by Pulse Oximetry: 97 (RA) Pulse Ox Interpretation: Normal Medical Decision Making Medical Decision Making: Time: 10:58 Plan: --X-Ray Cervical Spine --Toradol 30 mg IM --X-Ray Right Hip Accession No. : [id number] Patient Name / ID : CARRIE NESS / [id number] Exam Date : 09/19/2018 11:05:10 ( Approved ) Study Comment : Sex / Age : F / 53Y Creator : Jasiel Braun MD Dictator : Jasiel Braun MD Travel Director : Branch Lead : Jasiel Braun MD Approver2 : Report Date : 09/19/2018 14:56:33 My Comment : Date of service: 09/19/2018 PROCEDURE: Cervical Spine Radiographs. HISTORY: Pain. COMPARISON: Prior TECHNIQUE: 3 views obtained. FINDINGS: Note that the examination is limited due to obscuration of the odontoid by overlying occiput in the open-mouth projection BONES: No evidence of acute compression fracture nor retropulsed fragments. Vertebral bodies exhibit relatively normal stature. Very slight anterior subluxation C4 over C5 and minimal posterior subluxation C6 over C7. DISC SPACES: Multilevel degenerative spondylosis. Changes include varying degrees of disc space narrowing with anterior as well as posterior osteophyte formation. The uncovertebral facets also mildly hypertrophic. SOFT TISSUES: Normal. No prevertebral soft tissue swelling. OTHER FINDINGS: None. IMPRESSION: Limited study as above no acute fractures within limitation of this study.. Mild multilevel degenerative spondylosis. Accession No. : [id number] Patient Name / ID : CARRIE NESS / [id number] Exam Date : 09/19/2018 11:12:37 ( Approved ) Study Comment : Sex / Age : F / 53Y Creator : Jasiel Braun MD Dictator : Jasiel Braun MD Travel Director : Branch Lead : Jasiel Braun MD Approver2 : Report Date : 09/19/2018 14:59:14 My Comment : Date of service: 09/19/2018 PROCEDURE: Radiographs of the pelvis right hip. HISTORY: Pain COMPARISON: None. FINDINGS: BONES: No evidence of acute displaced fracture nor dislocation. The osseous structures intact. Both femoral heads are appropriately located within the respective acetabula. JOINTS: Mild degenerative changes with slight spurring of the superolateral margins of both acetabular roofs.. SI joints patent and intact. Symphysis pubis also intact OTHER FINDINGS: None. IMPRESSION: No acute fracture. Minor degenerative osteoarthritis Scribe Attestation: Documented by Grecia Mercado, acting as a scribe for Yasmin Spears MD. Provider Scribe Attestation: All medical record entries made by the Scribe were at my direction and personally dictated by me. I have reviewed the chart and agree that the record accurately reflects my personal performance of the history, physical exam, medical decision making, and the department course for this patient. I have also personally directed, reviewed, and agree with the discharge instructions and disposition. Disposition - Clinical Impression Clinical Impression: Musculoskeletal pain - Disposition Disposition: Routine/Home Disposition Time: 14:48 Condition: IMPROVED Additional Instructions: FOLLOW-UP WITH PMD WITHIN 2 DAYS FOR REEVALUATION. Prescriptions: Lidocaine 5% [Lidoderm] 1 ea TD DAILY PRN #7 patch PRN Reason: Pain, Moderate (4-7) Instructions: Muscle and Bone Pain (DC) Forms: [employer] (Greek)
[2018-09-19 12:06] VITALS: BP 135/83; PULSE 84; RESP 19; TEMP 98.6
--- NOTE | 2018-09-19 15:00 | RAD ---
Date of service: 09/19/2018 PROCEDURE: Cervical Spine Radiographs. HISTORY: Pain. COMPARISON: Prior TECHNIQUE: 3 views obtained. FINDINGS: Note that the examination is limited due to obscuration of the odontoid by overlying occiput in the open-mouth projection BONES: No evidence of acute compression fracture nor retropulsed fragments. Vertebral bodies exhibit relatively normal stature. Very slight anterior subluxation C4 over C5 and minimal posterior subluxation C6 over C7. DISC SPACES: Multilevel degenerative spondylosis. Changes include varying degrees of disc space narrowing with anterior as well as posterior osteophyte formation. The uncovertebral facets also mildly hypertrophic. SOFT TISSUES: Normal. No prevertebral soft tissue swelling. OTHER FINDINGS: None. IMPRESSION: Limited study as above no acute fractures within limitation of this study.. Mild multilevel degenerative spondylosis.
--- NOTE | 2018-09-19 15:03 | RAD ---
Date of service: 09/19/2018 PROCEDURE: Radiographs of the pelvis right hip. HISTORY: Pain COMPARISON: None. FINDINGS: BONES: No evidence of acute displaced fracture nor dislocation. The osseous structures intact. Both femoral heads are appropriately located within the respective acetabula. JOINTS: Mild degenerative changes with slight spurring of the superolateral margins of both acetabular roofs.. SI joints patent and intact. Symphysis pubis also intact OTHER FINDINGS: None. IMPRESSION: No acute fracture. Minor degenerative osteoarthritis
[2018-09-21 11:42] VITALS: O2SAT 97
== END 2018-09-19 15:12 | disposition home or self-care (01) ==
LOC: H.ER 09:25
DX: M79.10 Myalgia, unspecified site (principal); I10 Essential (primary) hypertension; Z88.0 Allergy status to penicillin; Z88.2 Allergy status to sulfonamides
CPT/HCPCS: 72040; 73503; 96372; 99283; J1885